=== PATIENT | female | born 1975 | race Caucasian/White ===

== ENCOUNTER 2025-06-21 08:54 | Inpatient (IN) | payer MEDICAID, OTHER ==
[~2025-06-21] VITALS: Ht 157.5 cm; Wt 76.7 kg
[~2025-06-21 08:54] MED LIST: ALBU18HF12 IH; CETI10TA58 PO; FAMO20 PO; FLUO-418 PO; FLUT16H NASAL; FLUT1BLS18 IH; GABA-1181 PO; LIDO700A30 TP; METF-1211 PO; MONT-40 PO; NAPR-1196 PO; OLAN5TAB77 PO; TIOT185 IH
[2025-06-21] MEDS ORDERED: GABAPENTIN 300 MG CAPSULE PO PRN (10:00)
[2025-06-21] MEDS ORDERED: GuaiFENesin/D-METHORPHAN [SUGAR-FREE] 200-20MG/10 ML SYRUP UDCUP PO PRN (11:45)
[2025-06-21] MEDS ORDERED: MELATONIN 5 MG TABLET PO PRN (11:45)
[2025-06-21] MEDS ORDERED: PROMETHAZINE HCL 25 MG TABLET PO PRN (11:45)
[2025-06-21] MEDS ORDERED: ACETAMINOPHEN 325 MG TABLET PO PRN (11:45)
[2025-06-21] MEDS ORDERED: MAGNESIUM HYDROXIDE SUSPENSION 30 ML UDCUP PO PRN (11:45)
[2025-06-21] MEDS ORDERED: MAG HYDROX/ALUMINUM HYD/SIMETH ES 30 ML SUSPENSION UDCUP PO PRN (11:45)
[2025-06-21] MEDS ORDERED: TUBERCULIN, PURIFIED PROTEIN DERIVATIVE 5 TU/0.1 ML SYRINGE ID ONE (11:45)
[2025-06-21] MEDS ORDERED: LOPERAMIDE HCL 2 MG CAPSULE PO PRN (11:45)
[2025-06-21] MEDS: CYANOCOBALAMIN 1,000 MCG/ML VIAL IM ONE (14:20)
[2025-06-21] MEDS: FLUTICASONE PROPIONATE 50 MCG/SPRAY 16 GM NASAL SPRAY NASAL SCH (16:05)
[2025-06-21] MEDS: TIOTROPIUM BROMIDE 18 MCG/INH HANDIHALER [5] IH SCH (16:05)
[2025-06-21] MEDS: THIAMINE 100 MG TABLET PO SCH (16:06)
[2025-06-21] MEDS: PALIPERIDONE PALMITATE 234 MG/1.5 ML SYRINGE IM ONE (16:23)
[2025-06-21 16:29] VITALS: BP 110/88; PULSE 98; RESP 18; TEMP 98.7
[2025-06-21] MEDS ORDERED: INFLUENZA VIRUS VACCINE TVS (6MO+) 2025-26/PF 45 MCG/0.5 ML SYRINGE IM. ONE (17:45)
[2025-06-21 20:00] VITALS: BP 140/89; PULSE 100; RESP 18; TEMP 97.5; O2SAT 99
[2025-06-21] MEDS: DIVALPROEX SODIUM 500 MG DR TABLET PO SCH (21:10)
[2025-06-22 09:23] VITALS: BP 106/63; PULSE 88; RESP 16; TEMP 98.2; O2SAT 97
[2025-06-22] MEDS: NALTREXONE HCL 50 MG TABLET PO SCH (09:41)
[2025-06-22] MEDS: PANTOPRAZOLE SODIUM 40 MG DR TABLET PO SCH (09:41)
[2025-06-22] MEDS: AZITHROMYCIN 250 MG TABLET PO SCH (09:42)
[2025-06-22] MEDS: FOLIC ACID 1 MG TABLET PO SCH (09:42)
[2025-06-22] MEDS: MONTELUKAST SODIUM 10 MG TABLET PO SCH (09:42)
[2025-06-22] MEDS: MULTIVITAMINS WITH MINERALS, THERAPEUTIC TABLET PO SCH (09:42)
[2025-06-22] MEDS: LIDOCAINE 5% TRANSDERMAL PATCH TD SCH (09:57)
[2025-06-22] MEDS: -LIDODERM PATCH NOTE- MISC SCH (20:35)
[2025-06-22 20:57] VITALS: BP 131/74; PULSE 87; RESP 18; TEMP 97.7; O2SAT 95
[2025-06-23 13:31] VITALS: BP 115/74; PULSE 93; RESP 17; TEMP 98.6; O2SAT 98
[2025-06-23 22:44] VITALS: BP 102/63; PULSE 83; RESP 19; TEMP 98; O2SAT 95
[2025-06-24 18:53] VITALS: BP 118/66; PULSE 91; RESP 18; TEMP 97.8; O2SAT 100
[2025-06-24 21:42] VITALS: BP 121/68; PULSE 100; RESP 18; TEMP 96.7; O2SAT 99
[2025-06-25 11:10] VITALS: BP 112/80; PULSE 84; RESP 18; O2SAT 96
[2025-06-25] MEDS ORDERED: NALT50TA33 PO (11:24)
[2025-06-25] MEDS ORDERED: QUET200T30 PO (11:24)
[2025-06-25] MEDS ORDERED: QUET25TA36 PO (11:24)
[2025-06-25] MEDS ORDERED: MELA5TAB40 PO (11:24)
[2025-06-25] MEDS ORDERED: DIVA-112 PO (11:24)
[2025-06-25] MEDS: PALIPERIDONE PALMITATE 156 MG/ML SYRINGE IM ONE (12:32)
[2025-06-25] MEDS ORDERED: PANT-31 PO (15:20)
[2025-06-25] MEDS ORDERED: THIA100T80 PO (15:20)
[2025-06-25] MEDS ORDERED: FOLI-130 PO (15:20)
[2025-06-25] MEDS ORDERED: MONT-35 PO (15:20)
[2025-06-25] MEDS ORDERED: PRED-549 PO (15:20)
[2025-06-25] MEDS ORDERED: MULT-1303 PO (15:20)
== END 2025-06-25 17:45 | disposition home or self-care (01) | DRG 761 ==
LOC: 3EI 12:46
PROVIDERS: ADMIT Psychiatry & Neurology Psychiatry; ATTEND Psychiatry & Neurology Psychiatry
PROC: GZHZZZZ Group Psychotherapy (ICD-10-PCS; principal; 2025-06-22)
PROC: GZ58ZZZ Individual Psychotherapy, Cognitive-Behavioral (ICD-10-PCS; 2025-06-22)
PROC: GZ56ZZZ Individual Psychotherapy, Supportive (ICD-10-PCS; 2025-06-22)
DX: F25.0 Schizoaffective disorder, bipolar type (principal); R45.850 Homicidal ideations; K21.9 Gastro-esophageal reflux disease without esophagitis; E11.9 Type 2 diabetes mellitus without complications; J44.9 Chronic obstructive pulmonary disease, unspecified; J45.909 Unspecified asthma, uncomplicated; Z20.822 Contact with and (suspected) exposure to COVID-19; F60.0 Paranoid personality disorder; Z60.8 Other problems related to social environment; Z55.9 Problems related to education and literacy, unspecified; Z59.9 Problem related to housing and economic circumstances, unspecified; Z63.9 Problem related to primary support group, unspecified; Z65.3 Problems related to other legal circumstances
CPT/HCPCS: J3420